=== PATIENT | female | born 1945 | race Caucasian/White ===

== ENCOUNTER → 2018-06-21 | Outpatient (CLI) | payer MEDICARE ==
[~2018-06-21] MED LIST: ALPH300T2 PO; ASCO-96 PO; ASPI-496 PO; AZEL137S4 NAS; CALC300T4 PO; CHOL3000 PO; CHRO1000 PO; CINN500C2 PO; DICL100G19 TD; Diamox PO; ESTR1PAT10 TD; FAMO20TA37 PO; FEXO180T72 PO; FLUT9.9S NS; GLUC-137 PO; LACT1CAP35 PO; LEVO112T2 SL; LORA10TA75 PO; MAG355OR22 PO; MELO7.5T5 PO; METH500T97 PO; MULT-224 PO; OMEG-156 PO; PSYL0.5215 PO; RESV1TAB PO; S-AD200T PO; TURM1POW PO; UBID100C24 PO; VALA500T4 PO; VITA1TAB19 PO; VITA400T6 PO; VITA40TA PO; Vitamin B12 INJ; diamox PO; midrin PO
[2018-06-21 12:12] LABS: MICROSCOPIC NOT IND
[2018-06-21 12:17] LABS: CULTURE INDICATED? NO
[2018-06-21 12:43] LABS: CHLORIDE 106 mmol/L (98-107)
[2018-06-21 12:58] LABS: ANION GAP 10 mmol/L (5-15); CALCIUM 8.9 mg/dL (8.5-10.1); CREATININE 0.66 mg/dL (0.55-1.02)
[2018-06-21 14:32] LABS: BASOPHILS # (AUTO) 0.05 x10^3/uL (0-0.1); BASOPHILS % (AUTO) 1 % (0-1); EOSINOPHILS # (AUTO) 0.12 x10^3/uL (0-0.4); EOSINOPHILS % (AUTO) 3 % (1-7); LYMPHOCYTES # (AUTO) 1.69 x10^3/uL (1-3.4); LYMPHOCYTES % (AUTO) 36 % (22-44); MD NO; MEAN CORPUSCULAR HEMOGLOBIN 32.6 pg (27.0-34.8); MEAN CORPUSCULAR HGB CONC 33.6 g/dL (32.4-35.8); MEAN CORPUSCULAR VOLUME 97.2 fL (80-100); MEAN PLATELET VOLUME 8.6 fL (7.4-10.4); MONOCYTES # (AUTO) 0.54 x10^3/uL (0.2-0.8); MONOCYTES % (AUTO) 12 % (2-9); NEUTROPHILS # (AUTO) 2.26 x10^3/uL (1.8-6.8); NEUTROPHILS % (AUTO) 49 % (42-75); PLATELET COUNT 205 x10^3/uL (130-400); RED BLOOD COUNT 4.67 x10^6/uL (3.82-5.3); RED CELL DISTRIBUTION WIDTH 13.7 % (9.6-15.2)
== END | disposition home or self-care (01) ==
LOC: STAR 10:24
PROVIDERS: ATTEND Orthopaedic Surgery
DX: Z01.818 Encounter for other preprocedural examination (principal); M17.12 Unilateral primary osteoarthritis, left knee
CPT/HCPCS: 36415; 80048; 81003; 85025; 87081; 93005

== ENCOUNTER 2018-07-04 05:41 | Inpatient (IN) | payer MEDICARE ==
[~2018-07-04] VITALS: Ht 144.8 cm; Wt 70.3 kg
[2018-07-04] MEDS ORDERED: LACTATED RINGERS 1,000 ML IV SCH (06:10)
[2018-07-04] MEDS ORDERED: MIDAZOLAM 1 MG/ML, 2ML ONE (06:37)
[2018-07-04] MEDS ORDERED: FENTANYL PF 100 MCG/2ML ONE (06:37)
[2018-07-04 06:38] VITALS: BP 172/93
[2018-07-04] MEDS ORDERED: TRANEXAMIC ACID 100 MG/ML, 10ML ONE (06:44)
[2018-07-04] MEDS ORDERED: KETOROLAC 60 MG/2 ML ONE (06:44)
[2018-07-04] MEDS ORDERED: ROPIvacaine/PF 0.2%, 20 ML ONE (06:45)
[2018-07-04] MEDS ORDERED: EPINEPHRINE 1 MG/ML, 1ML ONE (06:45)
[2018-07-04] MEDS ORDERED: VANCOMYCIN 1,000 MG ONE (06:45)
[2018-07-04] MEDS ORDERED: PROPOFOL 50 ML ONE (06:59)
[2018-07-04] MEDS ORDERED: FAMOTIDINE 20 MG TABLET PO ONE (07:00)
[2018-07-04] MEDS ORDERED: ONDANSETRON ODT 8 MG PO ONE (07:00)
[2018-07-04] MEDS ORDERED: ACETAMINOPHEN 500 MG TABLET PO ONE (07:00)
[2018-07-04] MEDS ORDERED: GABAPENTIN 300 MG CAPSULE PO ONE (07:00)
[2018-07-04] MEDS ORDERED: CLINDAMYCIN 150 MG/ML, 6ML ONE (07:03)
[2018-07-04] MEDS ORDERED: FENTANYL PF 250 MCG/5ML ONE (07:41)
[2018-07-04] MEDS: D5%-0.45% NACL 1,000 ML IV SCH ×2 (08:40→20:35)
[2018-07-04] MEDS ORDERED: HYDROmorphone 2 MG/ML, 1ML ONE (08:54)
[2018-07-04] MEDS: HYDROmorphone 1 MG/ML, 1ML IV PRN ×2 (08:56→09:13)
[2018-07-04] MEDS ORDERED: HYDROmorphone 2 MG/ML, 1ML IV PRN (09:00)
[2018-07-04] MEDS ORDERED: MAGNESIUM HYDROXIDE 8%, 30ML UDC PO PRN (09:00)
[2018-07-04] MEDS ORDERED: ONDANSETRON ODT 8 MG PO PRN (09:00)
[2018-07-04] MEDS ORDERED: ZOLPIDEM 5MG TABLET PO PRN (09:00)
[2018-07-04] MEDS: MULTIVITAMINS/MINERALS TABLET PO SCH (09:00)
[2018-07-04] MEDS ORDERED: PROMETHAZINE 12.5 MG SUPP PR PRN (09:00)
[2018-07-04] MEDS ORDERED: CODEINE SULFATE 30 MG TABLET PO PRN (09:00)
[2018-07-04] MEDS ORDERED: HYDROcodone/APAP 7.5-325MG/15ML UDC PO PRN (09:00)
[2018-07-04] MEDS: DOCUSATE 100 MG CAPSULE PO SCH ×2 (09:00→20:35)
[2018-07-04] MEDS ORDERED: METHOCARBAMOL 500 MG TABLET PO PRN (09:00)
[2018-07-04] MEDS ORDERED: BISACODYL 10 MG SUPP PR PRN (09:00)
[2018-07-04] MEDS ORDERED: ONDANSETRON 2MG/ML, 2ML IV PRN ×2 (09:00)
[2018-07-04] MEDS ORDERED: MEPERIDINE/PF 25MG/0.5ML IVPush PRN (09:00)
[2018-07-04] MEDS ORDERED: DIPHENHYDRAMINE 25 MG CAPSULE PO PRN (09:00)
[2018-07-04] MEDS ORDERED: APAP/CODEINE 300/60MG TABLET PO PRN (09:00)
[2018-07-04] MEDS ORDERED: ACETAMINOPHEN 650 MG/20.3 ML UDC PO PRN (09:00)
[2018-07-04] MEDS ORDERED: SENNA/DOCUSATE TABLET PO PRN (09:00)
[2018-07-04] MEDS ORDERED: FENTANYL PF 100 MCG/2ML IV PRN (09:00)
[2018-07-04] MEDS ORDERED: DIAZEPAM 5 MG TABLET PO PRN (09:00)
[2018-07-04] MEDS ORDERED: PROMETHAZINE 25 MG/ML, 1ML IV PRN (09:00)
[2018-07-04] MEDS ORDERED: ALUMINUM/MAG/SIMETHICONE 30 ML UDC PO PRN (09:00)
[2018-07-04] MEDS ORDERED: TRANEXAMIC ACID 1,000 MG in SODIUM CHLORIDE 0.9% 100 ML IVPB ONE (09:00)
[2018-07-04] MEDS ORDERED: PROMETHAZINE 25 MG/ML, 1ML IM PRN (09:00)
[2018-07-04] MEDS: ONDANSETRON 4 MG TABLET PO PRN ×2 (10:18→19:54)
[2018-07-04] MEDS: TAMSULOSIN 0.4 MG CAP.ER.24H PO SCH (10:27)
[2018-07-04 12:15] VITALS: BP 124/65
[2018-07-04] MEDS ORDERED: CEFAZOLIN PMX 2GM/50ML 50 ML IVPB SCH (14:30)
[2018-07-04] MEDS: ASPIRIN 81 MG TABLET EC PO SCH (18:39)
[2018-07-04 20:00] VITALS: BP 121/63
[2018-07-04] MEDS ORDERED: CLINDAMYCIN PMX 900MG/50ML 50 ML IV ONE (21:00)
[2018-07-04] MEDS: APAP/CODEINE 300/30MG TABLET PO PRN (21:58)
[2018-07-04] MEDS ORDERED: HYDROmorphone 2MG TABLET PO PRN (22:00)
[2018-07-05 00:12] VITALS: BP 101/50
[2018-07-05] MEDS: APAP/CODEINE 300/30MG TABLET PO PRN ×2 (02:21→08:14)
[2018-07-05 03:19] VITALS: BP 111/60
[2018-07-05] MEDS: ASPIRIN 81 MG TABLET EC PO SCH (05:16)
[2018-07-05] MEDS: D5%-0.45% NACL 1,000 ML IV SCH (05:17)
[2018-07-05] MEDS ORDERED: DEXAMETHASONE 4 MG/ML, 1ML IVPush SCH (06:00)
[2018-07-05] MEDS ORDERED: LEVOTHYROXINE 112 MCG TABLET PO SCH (06:00)
[2018-07-05 07:40] VITALS: BP 105/60
[2018-07-05] MEDS: TAMSULOSIN 0.4 MG CAP.ER.24H PO SCH (08:14)
[2018-07-05] MEDS: MULTIVITAMINS/MINERALS TABLET PO SCH (08:14)
[2018-07-05] MEDS: DOCUSATE 100 MG CAPSULE PO SCH (08:14)
[2018-07-05] MEDS ORDERED: KETOROLAC 30 MG/1 ML IV SCH (09:00)
[2018-07-05 10:42] VITALS: BP 114/62
[2018-07-05] MEDS ORDERED: ACET1TAB64 PO (11:04)
== END 2018-07-05 11:15 | disposition home or self-care (01) | DRG 470 ==
LOC: OR 05:41 → ORIP 08:40 → 4NOR 09:45 → DCLOUNGE 07-05 11:00
PROVIDERS: ADMIT Orthopaedic Surgery; ATTEND Orthopaedic Surgery
PROC: 3E0T3BZ Introduction of Anesthetic Agent into Peripheral Nerves and Plexi, Percutaneous Approach (ICD-10-PCS; 2018-07-04)
PROC: 0SRD0J9 Replacement of Left Knee Joint with Synthetic Substitute, Cemented, Open Approach (ICD-10-PCS; principal; 2018-07-04 07:30)
DX: M17.12 Unilateral primary osteoarthritis, left knee (principal); E03.9 Hypothyroidism, unspecified; G89.29 Other chronic pain; M21.062 Valgus deformity, not elsewhere classified, left knee; Z88.5 Allergy status to narcotic agent; Z88.8 Allergy status to other drugs, medicaments and biological substances
CPT/HCPCS: 36415; 85014; 85018; C1713; G0378; J0171; J1100; J1170; J1885; J2250; J2704; J2795; J3010; J3370; Q0162; C1776; J7120; Q0163